=== PATIENT | female | born 1970 | race Caucasian/White ===

== ENCOUNTER → 2016-07-13 | Outpatient (CLI) | payer BC ==
[~2016-07-13] MED LIST: NO MEDICATIONS
--- NOTE | 2016-07-13 15:07 | MAMMOGRAPHY REPORT ---
BILATERAL DIGITAL SCREENING MAMMOGRAM TOMOSYNTHESIS WITH CAD: 07/13/2016 CLINICAL HISTORY: Routine screening. Patient has no complaints. TECHNIQUE: Breast tomosynthesis in addition to standard 2D mammography was performed. Current study was also evaluated with a Computer Aided Detection (CAD) system. COMPARISON: Comparison is made to exams dated: 07/01/2015 ultrasound, 07/01/2015 mammogram, 11/26/2012 ul trasound, 11/26/2012 mammogram, 04/07/2011 mammogram - [facility], and 08/30/2006. BREAST COMPOSITION: The tissue of both breasts is heterogeneously dense, which may obscure small ma sses. FINDINGS: No suspicious masses, calcifications, or areas of architectural distortion are noted in e ither breast. There has been no significant interval change compared to prior exams. IMPRESSION: ACR BI-RADS CATEGORY 1: NEGATIVE There is no mammographic evidence of malignancy. A 1 year screening mammogram is recommended. The p atient will receive written notification of the results. Approximately 10% of breast cancers are not detected with mammography. A negative mammographic repor t should not delay biopsy if a clinically suggestive mass is present. Jennifer Corley M.D. ah/:07/13/2016 13:55:12 Manager Of Software: Alison Whittington, [facility] letter sent: Normal 1/2 BI-RADS Code: ACR BI-RADS Category 1: Negative
== END | disposition home or self-care (01) ==
LOC: C.MAMM 09:29
PROVIDERS: ATTEND Obstetrics & Gynecology
DX: Z12.31 Encounter for screening mammogram for malignant neoplasm of breast (principal)

== ENCOUNTER → 2017-08-19 | Outpatient (CLI) | payer BC ==
--- NOTE | 2017-08-19 13:59 | DIAGNOSTIC IMAGING REPORT ---
SCOLIOSIS 2 VIEW (AP LAT) CLINICAL HISTORY: SCOLIOSIS COMPARISON STUDY: 04/01/2015 FINDINGS: S shaped scoliosis. Angulation of the thoracic spine is 42 degrees. This is increased from the prior study of 36 degrees. Angulation of the lumbar spine is 58 degrees increase in 52 degrees. IMPRESSION: Scoliosis of the thoracolumbar spine with angulations of 42 and 58 degrees respectively. This is increased from the prior exam where measurements were 36 and 52 degrees respectively. The above report was generated using voice recognition software. It may contain grammatical, syntax or spelling errors. Electronically signed by: Connor Monge M.D. 08/19/2017 1:58 PM Dictated Date/Time: 08/19/2017 1:55 PM
== END | disposition home or self-care (01) ==
LOC: C.RAD 13:13
PROVIDERS: ATTEND Family Medicine
DX: M41.9 Scoliosis, unspecified (principal)